=== PATIENT | male | born 1980 | race Caucasian/White ===

== ENCOUNTER 2021-10-01 00:39 | Day surgery (SDC) | payer OTHER, SELFPAY ==
[2021-09-23 12:04] VITALS: BMI 20.8
[2021-10-01 10:05] VITALS: BP 94/57; PULSE 87; RESP 18; TEMP 36.8; O2SAT 100
[2021-10-01] MEDS: LACTATED RINGERS 1,000 ML 150 ML IV CONT (10:07)
--- NOTE | 2021-10-01 10:23 | WPDHPUPDATE1 ---
History and Physical Update Update Date/Time: 10/01/21 10:23 History and Physical has been reviewed, including an updated exam of the patient. There are NO changes in the patient's condition. Risks, benefits, and alternatives have been discussed and questions answered. Patient agrees to proceed with procedure.
--- NOTE | 2021-10-01 11:08 | WPDANESEPPF ---
Anes - Initial Pre Proc Eval Procedure: Operation Date: 10/01/21 11:15 Proposed Procedures p Esophagogastroduodenoscopy & Colonoscopy - Jonathan Cabrera MD Date/Time: 10/01/21 11:08 Surgeon: Jonathan Cabrera MD Pre Op Diagnosis: Abdominal pain, Nausea, GERD, melena Patient Data Age: 40 Gender: M Height: 1.75 m Weight: 62.4 kg Last Vital Signs Temp 98.2 F 10/01/21 10:05 Pulse 87 10/01/21 10:05 Resp 18 10/01/21 10:05 BP 94/57 L 10/01/21 10:05 Pulse Ox 100 10/01/21 10:05 Allergies Allergy/AdvReac Type Severity Reaction Status Date / Time Sulfa (Sulfonamide Allergy Unknown Unknown Verified 10/01/21 10:03 Antibiotics) Home Medications Medication Instructions Recorded Confirmed Type famotidine 20 mg tablet 20 mg PO BID tablet 09/08/21 10/01/21 History pantoprazole 20 mg tablet,delayed 20 mg PO DAILY tablet 09/08/21 10/01/21 History release Patient hx anesthesia problems: none Family hx anesthesia problems: none Results Review: All pre-operative results and documents have been reviewed as part of the pre-operative evaluation. [facility] Surgical History Surgical History (Updated 09/08/21 @ 10:50 by Betty Mitchell MA) History of appendectomy Family History Family History (Updated 09/08/21 @ 10:51 by Betty Mitchell MA) Father Hypertension Mother Depression Cancer Social History Social History (Updated 09/08/21 @ 10:52 by Betty Mitchell MA) Smoking status: Former smoker Tobacco type: cigarettes Alcohol intake: never Substance use: current Substance use type: marijuana Other substance usage details: weekly Living arrangements: with family Gender identity (if verbalized by the patient): Male Spiritual care concerns: No Anes - Eval Final PreProcedure Day of Procedure 10/01/21 11:08 Patient weight: normal Heart: regular rate and rhythm Lungs: clear to auscultation Airway: Mallampati scale class II Neurological: alert and oriented Last oral intake: >/= 8 hours ASA classification: II Emergent: no Anesthetic plan: proceed Anesthesia type and monitoring: general GIVS and standard monitoring Results Review: All pre-operative results and documents have been reviewed as part of the pre-operative evaluation. Informed Consent: The patient's anesthetic plan and its attendant risks and benefits were discussed with the patient/family/POA. Questions were solicited and answers provided to the satisfaction of the patient/family/POA.
[2021-10-01 11:38] VITALS: BP 96/59; PULSE 88; RESP 16; O2SAT 100
--- NOTE | 2021-10-01 11:43 | SUR.OPER ---
EGD ended at 1123. Colonoscopy started at 1128.
[2021-10-01 11:48] VITALS: BP 104/67; PULSE 89; RESP 16; O2SAT 100
[2021-10-01 11:58] VITALS: BP 114/74; PULSE 88; RESP 16; O2SAT 98
== END 2021-10-01 12:04 | disposition home or self-care (01) ==
PROVIDERS: PCP Family Medicine; Visit Provider Internal Medicine Gastroenterology
PROC: 0DJ08ZZ Inspection of Upper Intestinal Tract, Via Natural or Artificial Opening Endoscopic (ICD-10-PCS; CPT 43235; principal; 2021-10-01 11:15)
DX: K92.1 Melena (principal); R10.84 Generalized abdominal pain; K64.8 Other hemorrhoids; R11.0 Nausea; K21.9 Gastro-esophageal reflux disease without esophagitis; Z87.891 Personal history of nicotine dependence; F12.90 Cannabis use, unspecified, uncomplicated; R14.0 Abdominal distension (gaseous); R51.9 Headache, unspecified
CPT/HCPCS: 45380; 43239; 87081; 88305; J2704; J7120

== ENCOUNTER 2023-03-19 23:35 | Emergency (ER) | payer BC, SELFPAY ==
[2023-03-19 23:37] VITALS: BP 130/88; PULSE 88; RESP 16; TEMP 36.4; O2SAT 97
[2023-03-20 00:12] VITALS: BP 127/89; PULSE 99; RESP 15; O2SAT 100
[2023-03-20 00:27] LABS: Appearance Urine Clear (Clear); Bilirubin Urine Negative (Negative); Blood Urine Negative (Negative); Color Urine Yellow (Yellow); Glucose Urine UA Negative (Negative); Ketones Urine Negative (Negative); Leukocyte Esterase Ur Negative LEU/UL (Negative); Nitrate Urine Negative (Negative); Protein Urine Negative (Negative); Specific Grav Ur 1.006 (1.001-1.035); pH Urine 6.5 (5.0-9.0)
[2023-03-20 00:32] LABS: Add Urine Microscopic? NO
[2023-03-20 00:35] LABS: Ethanol 141 mg/dL (<10)
[2023-03-20 00:36] LABS: Alanine Aminotransferase 38 U/L (6-50); Albumin Level 4.7 g/dL (3.5-5.1); Alkaline Phosphatase 62 U/L (38-126); Anion Gap 14 mmol/L (8-16); Aspartate Amino Transferase 38 U/L (17-59); Bilirubin,Total 0.8 mg/dL (0.2-1.3); Blood Urea Nitrogen 6 mg/dL (9-20); Calcium 8.8 mg/dL (8.4-10.2); Carbon Dioxide 21 mmol/L (22-30); Chloride 104 mmol/L (98-107); Estimated CRCL calculation 86 ml/min; Estimated Glomerular Filt Rate > 60; Glucose 105 mg/dL (65-110); Potassium 3.9 mmol/L (3.4-5.0); Sodium 139 mmol/L (137-145)
[2023-03-20 00:37] LABS: Basophils Absolute Auto 0.1 K/mm3 (0.0-0.1); Basophils Percent Auto 0.5 % (0.2-1.2); Eosinophils Absolute Auto 0.2 K/mm3 (0-0.3); Eosinophils Percent Auto 2.4 % (0-4.4); Hematocrit 53.1 % (42.0-52.0); Hemoglobin 17.9 g/dL (14.0-18.0); Immature Granulocyte Absolute 0.04 K/mm3 (0.00-0.031); Immature Granulocyte Percent A 0.4 % (0-0.5); Lymphocytes Absolute Auto 2.25 K/mm3 (0.9-3.2); Lymphocytes Percent Auto 23.9 % (18.3-44.2); Mean Corpuscular HGB Conc 33.7 g/dl (32-36); Mean Corpuscular Hemoglobin 32.1 pg (26-34); Mean Corpuscular Volume 95.3 fl (80-100); Monocytes Absolute Auto 0.6 K/mm3 (0.1-0.6); Monocytes Percent Auto 6.5 % (2.6-8.5); Neutrophils Absolute Auto 6.2 K/mm3 (1.3-6.7); Neutrophils Percent Auto 66.3 % (45.5-73.1); Platelet Count Result 280 k/mm3 (150-375); Red Blood Count 5.57 M/mm3 (4.6-6.20); Red Cell Distribution Width 12.5 % (11.5-14.5); White Blood Count 9.4 K/mm3 (4.5-10.0)
[2023-03-20 00:43] LABS: Amphetamine Screen Urine Negative (Negative); Barbiturate Screen Urine Negative (Negative); Benzodiazepines Screen Urine Negative (Negative); Cannabinoid Screen Urine Negative (Negative); Cocaine Screen Urine Negative (Negative); Methadone Screen Urine Negative (Negative); Opiate Screen Urine Negative (Negative); Phencyclidine Screen Urine Negative (Negative)
--- NOTE | 2023-03-20 01:34 | ED.PSYCH ---
HPI - Psych General Chief Complaint: Psychiatric Symptoms <Celina Trent MD - Last Filed: 03/20/23 08:18> Stated Complaint: SI <Celina Trent MD - Last Filed: 03/20/23 08:18> Time Seen by Provider: 03/20/23 00:39 <Celina Trent MD - Last Filed: 03/20/23 08:18> History of Present Illness HPI Narrative: Patient presents to the emergency department from home with suicidal thoughts. He has a history of depression and sees a therapist. He was on Abilify until a month ago. He did not like how it made him feel. He has had similar thoughts in the past. He had thoughts of shooting himself. He had access to a gun but that is now gone. He is accompanied by his friend. <Celina Trent MD - Last Filed: 03/20/23 08:18> Related Data Home Medications: Home Medications Medication Instructions Recorded Confirmed famotidine 20 mg tablet 20 mg PO BID 09/08/21 10/01/21 pantoprazole 20 mg tablet,delayed 20 mg PO DAILY 09/08/2122 release <Celina Trent MD - Last Filed: 03/20/23 08:18> Allergies/Adverse Reactions: Allergies Allergy/AdvReac Type Severity Reaction Status Date / Time Sulfa (Sulfonamide Allergy Unknown Unknown Verified 10/01/21 10:03 Antibiotics) <Celina Trent MD - Last Filed: 03/20/23 08:18> Review of Systems Review of Systems: Negative except what is documented in the HPI <Celina Trent MD - Last Filed: 03/20/23 08:18> [facility] Surgical History Surgical History: Surgical History (Updated 09/08/21 @ 10:50 by Betty Mitchell MA) History of appendectomy <Celina Trent MD - Last Filed: 03/20/23 08:18> Family History Family History: Family History (Updated 09/08/21 @ 10:51 by Betty Mitchell MA) Father Hypertension Mother Depression Cancer <Celina Trent MD - Last Filed: 03/20/23 08:18> Social History Social History: Social History (Updated 09/08/21 @ 10:52 by Betty Mitchell MA) Smoking status: Former smoker Tobacco type: cigarettes Alcohol intake: never Substance use: current Substance use type: marijuana Other substance usage details: weekly Living arrangements: with family Occupation/Education: occupation Gender identity (if verbalized by the patient): Male Spiritual care concerns: No <Celina Trent MD - Last Filed: 03/20/23 08:18> Exam Narrative: GENERAL: Well-appearing, well-nourished, and in no acute distress. Tearful HEAD: Normocephalic, atraumatic. EYES: PERRLA and EOMI. ENT: Nares clear, no rhinorrhea or epistaxis. Mucous membranes moist. NECK: Supple. CHEST: Clear to auscultation. No respiratory distress. HEART: Regular rate and rhythm. ABDOMEN: Soft, nontender, nondistended. EXTREMITIES: Normal range of motion. No edema. SKIN: Warm, dry, no rash. NEURO: No focal deficits. Alert and oriented x3. PSYCH: Normal mood and affect. <Celina Trent MD - Last Filed: 03/20/23 08:18> Course Course Emergency Course: Patient accepted to [facility]. Stable <Norman Corea MD - Last Filed: 03/20/23 19:14> Vital Signs Vital signs: Vital Signs Temperature 97.6 F 03/19/23 23:37 Pulse Rate 88 03/19/23 23:37 Respiratory Rate 16 03/19/23 23:37 Blood Pressure 130/88 03/19/23 23:37 Pulse Oximetry 97 03/19/23 23:37 Oxygen Delivery Room Air 03/19/23 23:37 Temperature 97.6 F 03/19/23 23:37 Pulse Rate 97 03/20/23 17:26 Respiratory Rate 18 03/20/23 17:26 Blood Pressure 134/92 H 03/20/23 17:26 Pulse Oximetry 96 03/20/23 17:26 Oxygen Delivery Room Air 03/19/23 23:37 <Celina Trent MD - Last Filed: 03/20/23 08:18> Vital Signs Temperature 97.6 F 03/19/23 23:37 Pulse Rate 88 03/19/23 23:37 Respiratory Rate 16 03/19/23 23:37 Blood Pressure 130/88 03/19/23 23:37 Pulse Oximetry 97 03/19/23 23:37 Oxygen Delivery Room Air
[2023-03-20 03:56] LABS: Ethanol 95 mg/dL (<10)
[2023-03-20 04:58] LABS: Influenza A QL RT-PCR Negative (Negative); Influenza B QL RT-PCR Negative (Negative); RSV RNA, RT-PCR Negative (Negative); SARS-CoV-2 RNA PCR Negative (Negative)
[2023-03-20 05:03] LABS: Ethanol 74 mg/dL (<10)
--- NOTE | 2023-03-20 05:10 | PC.NURSE ---
pt has been calm and cooperative through the night.
[2023-03-20 07:23] VITALS: BP 132/90; PULSE 107; RESP 18; O2SAT 97
[2023-03-20 10:05] VITALS: BP 123/88; PULSE 111; RESP 18; O2SAT 98
--- NOTE | 2023-03-20 10:40 | PC.NURSE ---
Per Crisis pt chart has been faxed to [place], [place] and [place]
[2023-03-20 13:45] VITALS: BP 127/90; PULSE 106; RESP 18; O2SAT 96
[2023-03-20 17:26] VITALS: BP 134/92; PULSE 97; RESP 18; O2SAT 96
== END 2023-03-20 18:05 ==
LOC: ANHED 03-20 01:04
PROVIDERS: Physician Assistant; Emergency Provider Emergency Medicine; PCP Family Medicine
DX: F41.9 Anxiety disorder, unspecified (principal); R45.851 Suicidal ideations; F12.929 Cannabis use, unspecified with intoxication, unspecified; Z20.822 Contact with and (suspected) exposure to COVID-19; Z87.891 Personal history of nicotine dependence; Z91.148 Patient's other noncompliance with medication regimen for other reason
CPT/HCPCS: 36415; 80053; 80307; 81003; 84443; 85025; 87637; 99285

== ENCOUNTER 2024-02-10 09:50 | Outpatient (CLI) | payer BC, SELFPAY ==
--- NOTE | ~2024-02-10 | XR_ITS ---
[id number] 02/10/2024 10:27 Indication: Neck pain Procedure: 5 views cervical spine Comparison: No prior studies for comparison. Findings: No fracture, subluxation or dislocation. There is mild degenerative spondylosis at C5-6 and C6-7. Mild multilevel uncinate hypertrophy. Lung apices are normal. Odontoid process is normal. No p revertebral soft tissue abnormality. Impression: 1: Mild cervical spondylosis. Reviewed, dictated and finalized at location A. Impression: 1: Mild cervical spondylosis.
== END 2024-02-10 09:51 | disposition home or self-care (01) ==
LOC: MICIMG 09:53
PROVIDERS: PCP Nurse Practitioner Family; Visit Provider Nurse Practitioner Family
DX: M47.892 Other spondylosis, cervical region (principal)
CPT/HCPCS: 72040